=== PATIENT | male | born 1955 | race Caucasian/White ===

== ENCOUNTER → 2021-06-20 14:35 | Outpatient (CLI) | payer OTHER, SELFPAY ==
--- NOTE | ~2021-06-20 | CT_ITS ---
EXAMINATION: CT brain wo con DATE: 06/20/2021 14:49 INDICATION: New onset of headaches after age 51. Nausea. TECHNIQUE: Computed tomography (CT) of the head was performed without intravenous contrast. The mA wa s adjusted according to patient size. Iterative reconstruction technique was employed. Exam dose: 67 4.51 mGy-cm total exam DLP. COMPARISON: None FINDINGS: No intracranial mass lesion or hemorrhage or cerebrovascular accident. No midline shift or mass effect. Normal ventricular size. There is moderate cerebral volume loss predominating in the frontal lobes and mild cerebellar volume loss. No subdural or epidural hematoma. Orbits are unremarkable. No fracture or bone destruction of the cranial vault. Mastoid air cells and included paranasal sinuse s are unremarkable. IMPRESSION: No acute intracranial finding; no intracranial mass lesion or hemorrhage Reviewed, dictated and finalized at [facility]. Reviewed, dictated and finalized at [facility]. IMPRESSION: No acute intracranial finding; no intracranial mass lesion or hemo rrhage
== END ==
PROVIDERS: PCP Internal Medicine
DX: R51.9 Headache, unspecified (principal)
CPT/HCPCS: 70450

== ENCOUNTER 2023-11-28 11:18 | Emergency (ER) | payer MEDICARE, SELFPAY ==
[2023-11-28 11:26] VITALS: BP 150/88; PULSE 61; RESP 18; TEMP 36.8; O2SAT 98
--- NOTE | 2023-11-28 11:30 | ED.EAR ---
HPI - Ear Problem General Chief complaint: Ear Stated complaint: left ear Time Seen by Provider: 11/28/23 11:30 Source: patient, RN notes reviewed and old records reviewed Mode of arrival: ambulatory Limitations: no limitations History of Present Illness HPI Narrative: 68-year-old male to [facility] with complaint of left ear fullness, discomfort and buzzing sound for nearly 1 month. Patient reports seeing an ENT approximately 1 month ago. Patient endorses current pain 4/10 in left ear. Patient has not attempted to treat symptoms at home. Patient hypertensive in triage, states that pain and the buzzing sound in his ear are causing him stress. Patient sitting in exam room uncomfortably, in no acute distress. Patient requesting to have right ear checked while he is here. Related Data Home Medications Medication Instructions Recorded Confirmed apixaban 5 mg tablet (Eliquis) 5 mg PO BID 11/28/23 11/28/23 atorvastatin 40 mg tablet 40 mg PO DAILY 11/28/23 11/28/23 clopidogrel 75 mg tablet 75 mg PO DAILY 11/28/23 11/28/23 gabapentin 300 mg capsule 300 mg PO BID 11/28/23 11/28/23 hydrocodone 10 mg-acetaminophen See Rx Instructions .Route 11/28/23 11/28/23 325 mg tablet .COMPLEX PRN pain ropinirole 1 mg tablet 1 mg PO DAILY 11/28/23 11/28/23 Allergies Allergy/AdvReac Type Severity Reaction Status Date / Time No Known Allergies Allergy Unverified 11/28/23 11:37 Review of Systems Review of Systems: All systems reviewed & are unremarkable except as noted in HPI and below Constitutional: Constitutional: Reports no additional constitutional complaints Eyes: Eyes: Reports no additional eye complaints ENT: Reports otalgia Cardiovascular: Cardiovascular: Reports no additional cardiovascular complaints, Denies chest pain and Denies dyspnea Respiratory: Respiratory: Reports no additional respiratory complaints, Denies cough and Denies dyspnea Musculoskeletal: Musculoskeletal: Reports no additional musculoskeletal complaints Neurologic: Reports system reviewed and no additional complaints, except as documented Psychiatric: Psychiatric: Reports no additional psychiatric complaints PMFSH Comments At the time of my signature, I reviewed and agree with the nursing past medical, surgical, social, and family history. There is no relevant family history pertinent to the patient complaint. Exam Const: General: cooperative, healthy appearing, no acute distress, well developed, alert, anxious, uncomfortable, well groomed and well nourished Nutritional Appearance: well nourished Orientation/consciousness: patient oriented x3 Limitations: no limitations HENMT: Head: normal to inspection Ears: external ears normal, Abnormal EAC present cerumen impaction bilateral and TM abnormal erythematous on the left, with fluid behind the TM on the left and with loss of landmarks on the left Face/Nose/Sinus: Normal external nose present, Normal nares present, normal facial exam, No erythema and No edema Face and sinus: normal facial exam, no erythema and no edema Mouth: Yes Normal oral and palatal mucosa present Eyes: General: appearance normal, both eyes and all related structures Neck: Neck: normal visual inspection, full ROM and no meningeal signs Chest: Chest palpation & inspection: normal inspection of the chest Resp: Effort & Inspection: normal respiratory effort and able to speak in complete sentences Cardio: Jugular venous distension: no JVD Rate: regular rate Back/Spine/Pelvis: Cervical Spine: cervical ROM normal Skin: General skin exam: normal color, no rashes or lesions noted and turgor normal Neuro: General: patient oriented x3, gait normal, moves all extremities and no meningeal signs Speech: normal speech Gait exam (Neuro): Normal gait present Extrem: General: normal to inspection, full ROM and capillary refill normal Psych: Appearance: grossly normal and well kempt Course Course Emergency Course: Some par
[2023-11-28 11:41] VITALS: BP 150/88; PULSE 61; RESP 18; TEMP 36.8; O2SAT 98
== END 2023-11-28 12:10 | disposition home or self-care (01) ==
PROVIDERS: Emergency Provider Nurse Practitioner Family; PCP Internal Medicine
DX: H66.92 Otitis media, unspecified, left ear (principal); H61.23 Impacted cerumen, bilateral; Z79.01 Long term (current) use of anticoagulants
CPT/HCPCS: 69210; 99213; G0463